=== PATIENT | female | born 1965 | race Caucasian/White ===

== ENCOUNTER → 2016-08-17 | Outpatient (CLI) | payer BC ==
--- NOTE | 2016-08-17 14:54 | MRI ---
Procedure: MR LUMBAR SPINE WITHOUT IV CONTRAST Exam Date: 08/17/2016 2:00 PM CDT Ordering Provider: PHYSICIAN UNKNOWN Clinical Indication: LUMBAR RADICULOPATHY Comparison: November 29, 2007 Technique: Multiplanar, multisequence MR images of the lumbar spine were obtained. Findings: No evidence of vertebral body compression deformity or acute fracture. No significant scoliosis.. Spinal cord terminates at the superior endplate of L1 and is normal in signal morphology. Cauda equina separate appropriately. T12-L1: Unremarkable. L1-L2: Unremarkable. L2-L3: Unremarkable. L3-L4: Trace disc bulge without spinal canal or foraminal stenosis. L4-L5: Unremarkable. L5-S1: Subtle transitional lumbosacral anatomy with hemisacralization of the transverse processes, left more so than right. Prevertebral and paravertebral soft tissues are unremarkable. Impression: Slight transitional lumbosacral anatomy without spinal canal or foraminal stenosis. Otherwise, unremarkable MRI of the lumbar spine. Electronically signed by: Nguyễn Lawler MD 08/17/2016 2:52 PM CDT
== END | disposition home or self-care (01) ==
LOC: MRI 13:51
PROVIDERS: ATTEND Nurse Practitioner Family
DX: M54.16 Radiculopathy, lumbar region (principal)

== ENCOUNTER → 2016-11-09 | Outpatient (CLI) | payer BC, SELFPAY ==
--- NOTE | 2016-11-09 14:51 | MRI ---
EXAM DESCRIPTION: Cervical Spine CLINICAL HISTORY: PAIN COMPARISON: None Available. TECHNIQUE: MRI of the cervical spine is performed according to our usual protocol. FINDINGS: Cervical spine is normally aligned with loss of the normal cervical lordosis and straightening throughout its course. Vertebral and disc height is maintained with multilevel modest disc desiccation but without significant disc narrowing or posterior chest bulge. No intradural or intramedullary abnormality or abnormality of cord contour is noted from the cranial cervical junction to the upper thoracic spine. Prevertebral soft tissues are unremarkable and no abnormal bone marrow signal is evident. Craniocervical junction is normal. C2-3: the disc is well hydrated. There is no loss of height. There is no bulging. The facets are unremarkable with no significant hypertrophy. There is no stenosis or impingement. C3-4: the disc is well hydrated. There is no loss of height. There is no bulging. The facets are unremarkable with no significant hypertrophy. There is no stenosis or impingement. C4-5: the disc is well hydrated. There is no loss of height. There is no bulging. The facets are unremarkable with no significant hypertrophy. There is no stenosis or impingement. C5-6: the disc is well hydrated. There is no loss of height. There is no bulging. The facets are unremarkable with no significant hypertrophy. There is no stenosis or impingement. C6-7: Very minimal central disc bulge with slight flattening of the anterior thecal sac but no severe cord compression or lateralizing herniation seen. This bulges minimally left-sided consistent with a minimal central or left parasagittal disc protrusion but not thought to be clinically significant C7-T1: the disc is well hydrated. There is no loss of height. There is no bulging. The facets are unremarkable with no significant hypertrophy. There is no stenosis or impingement. IMPRESSION: 1. Very small central and left parasagittal disc bulge consistent with a minimal protrusion without neural compression or stenosis at C6-7. 2. Otherwise normal examination without additional significant disc bulges or foraminal encroachment. 3. No intradural or intramedullary abnormality noted. Electronically signed by: Tonny Castorena MD 11/09/2016 2:51 PM CDT
== END | disposition home or self-care (01) ==
LOC: MRI 13:52
PROVIDERS: ATTEND Orthopaedic Surgery Orthopaedic Surgery of the Spine
DX: S13.4XXA Sprain of ligaments of cervical spine, initial encounter (principal); M54.12 Radiculopathy, cervical region

== ENCOUNTER → 2019-11-13 | Outpatient (CLI) | payer OTHER ==
--- NOTE | 2019-11-13 17:06 | MRI ---
EXAM DESCRIPTION: Cervical Spine MRI without contrast CLINICAL HISTORY: CERVICAL RADICULOPATHY COMPARISON: Previous MRI of the cervical spine November 11, 2016 TECHNIQUE: MRI of the cervical spine is performed according to our usual protocol. FINDINGS: Sagittal T2 images reveal decreased signal intensity within the intervertebral discs. Normal T2 appearance of the cervical cord. Posterior discal abnormalities are mild at C5-6 and C6-7 levels. This appears similar to previous study. Sagittal T1 images show benign marrow signal characteristics. Normal T1 appearance of the cervical and upper thoracic spinal cord. Normal alignment of the vertebral bodies and facets. Sagittal STIR images are negative for high signal intensity marrow edema within the vertebral bodies or posterior elements. No paraspinous fluid collection or cystic lesion. Axial images were obtained to evaluate the disc levels. C2-3: Normal posterior disc margin with no spinal stenosis or neural foraminal narrowing. Facets appear normal. Normal appearance of the cord at this level. C3-4: Normal posterior disc margin with no spinal stenosis or neural foraminal narrowing. Facets appear normal. Normal appearance of the cord at this level. C4-5: No significant posterior annular bulge. No spinal stenosis worse neural foraminal narrowing. Facets appear normal. C5-6: Mild bulge of the posterior annulus with no significant spinal stenosis or neural foraminal narrowing. Facets appear normal. Normal appearance of the cord at this level. C6-7: Mild midline left paracentral broad-based protrusion measuring 2 mm in AP dimension without significant change compared to previous. No significant spinal stenosis or neural foraminal narrowing. Facets appear normal. Normal appearance of the cord at this level. C7-T1: Normal posterior disc margin with no spinal stenosis or neural foraminal narrowing. Facets appear normal. Normal appearance of the cord at this level. IMPRESSION: Small left paracentral broad-based protrusion 2 mm appears chronic at C6-7. No significant change compared to previous study November 09, 2016. Electronically signed by: Lino Cardona MD 11/13/2019 5:04 PM CDT
== END ==
LOC: MRI 13:12
PROVIDERS: ATTEND Family Medicine Sports Medicine
DX: M54.12 Radiculopathy, cervical region (principal); M50.223 Other cervical disc displacement at C6-C7 level

== ENCOUNTER → 2019-11-28 | Outpatient (CLI) | payer OTHER ==
--- NOTE | 2019-11-29 10:36 | US ---
EXAM DESCRIPTION: Abdomen,Complete: Ultrasound. CLINICAL HISTORY: 54 years FemaleRIGHT UPPER QUADRANT PAIN COMPARISON: None Available. TECHNIQUE: Transabdominal scanning: grayscale and Doppler modes. FINDINGS: Gallbladder: Normal size gallbladder with no echogenic stones or sludge. Normal wall thickness 1.6 mm with no fluid. Nontender with transducer pressure. Common bile duct: 3.7 mm which is normal caliber. Liver: Long axis right lobe 13.9 cm. No focal lesions. Hepatopedal flow in the portal vein with caliber 7 mm at the héctor hepatis. Normal caliber of the ducts. Smooth capsule with no ascites.. Pancreas: Normal size and echogenicity with duct not seen. Abdominal aorta: Normal caliber in the proximal and mid segment, and distal segment to the bifurcation. IVC: visualized; normal caliber. Spleen normal echogenicity; long axis measurement is 7.6 cm. Right kidney: 9.4 cm long axis. Volume 86.6 mL. Normal cortical thickness and echogenicity. No echogenic stones or hydronephrosis. Left kidney: 10.7 cm long axis. Volume 122.2 mL. Normal cortical thickness and echogenicity. No echogenic stones or hydronephrosis. IMPRESSION: 1. Normal ultrasound of the gallbladder. Normal ultrasound of the abdomen. No organomegaly or ascites. 2. Stomach was not evaluated on this study. Electronically signed by: Jace Sun MD 11/29/2019 10:34 AM CDT
== END ==
LOC: US 12:42
PROVIDERS: ATTEND Family Medicine
DX: R10.11 Right upper quadrant pain (principal)

== ENCOUNTER 2020-02-01 05:42 | Day surgery (SDC) | payer OTHER ==
[2020-02-01] MEDS ORDERED: KETOROLAC TROMETHAMINE INJ 30 MG/ML VIAL ONE (07:00)
[2020-02-01] MEDS ORDERED: LIDOCAINE 1% 10 ML VIAL INJ ONE (07:00)
[2020-02-01] MEDS ORDERED: PROPOFOL 200 MG/20 ML VIAL IV ONE (07:00)
[2020-02-01] MEDS ORDERED: diphenhydrAMINE HCL 50 MG/ML VIAL ONE (07:00)
[2020-02-01] MEDS ORDERED: MAGNESIUM SULFATE INJ 1 GM/2 ML VIAL ONE (07:00)
[2020-02-01] MEDS ORDERED: DEXAMETHASONE INJ 10 MG/ML VIAL ONE (07:00)
[2020-02-01] MEDS ORDERED: BUPIVACAINE 0.5% W/EPI 30 ML VIAL INJ ONE (08:06)
[2020-02-01] MEDS: LACTATED RINGERS 1,000 ML ONE ×2 (08:20→10:10)
[2020-02-01] MEDS ORDERED: MIDAZOLAM INJ 2 MG/2 ML VIAL ONE (08:41)
[2020-02-01] MEDS ORDERED: DEXMEDETOMIDINE HCL 200 MCG/2 ML INJ IV ONE (08:41)
[2020-02-01] MEDS ORDERED: SUGAMMADEX SODIUM 200 MG/2 ML VIAL IV ONE (08:41)
[2020-02-01] MEDS ORDERED: fentaNYL CITRATE INJ 50 MCG/ML AMP ONE ×2 (08:41→10:07)
[2020-02-01] MEDS ORDERED: ROCURONIUM BROMIDE 10 MG/ML VIAL ONE (08:42)
[2020-02-01] MEDS ORDERED: FAMOTIDINE 10 MG/ML ML IV ONE (08:42)
[2020-02-01] MEDS: HYDROmorphone HCL INJ 2 MG/ML VIAL ONE ×2 (10:15→10:25)
--- NOTE | 2020-02-01 10:19 | OP ---
DATE OF PROCEDURE: 02/01/20 PREOPERATIVE DIAGNOSIS: 1. Biliary dyskinesia. 2. Abdominal pain. POSTOPERATIVE DIAGNOSIS: 1. Biliary dyskinesia. 2. Abdominal pain. PROCEDURE: 1. Laparoscopic cholecystectomy. SURGEON: Abhijit Walsh MD. ANESTHESIA: General and local. FINDINGS: Normal anatomy. There was ICG enhancement of the ductal system identifying both proximal and distal common duct and the cystic duct. There was evidence of some chronic scarring. No stones. Some thick bile. ESTIMATED BLOOD LOSS: Minimal. SPECIMEN: Gallbladder. PLAN: Discharge. INDICATION: This woman comes in with abdominal pain consistent with biliary disease. Ultrasound was normal. HIDA scan as I recall showed normal ejection fraction, however, she did experience a lot of pain during the procedure consistent with dyskinesia. We discussed this, it is all very typical of gallbladder disease, so she is here for cholecystectomy. PROCEDURE: She was brought to the Operating Suite in supine position. General anesthesia was induced. The patient was prepped and draped in sterile fashion. Marcaine 0.5% with epinephrine was used at all incision sites. While maintaining upward traction, a alysha was made near the base of the umbilicus. Veress needle was introduced. There was free flow of fluid into the peritoneal cavity which was insufflated to an appropriate level with CO2 gas. The 5 mm trocar was placed followed by the camera. There was no evidence of bleeding or bowel injury. The patient was positioned and subxiphoid and a single right lateral port was placed. The gallbladder fundus was identified. There were a few scars over the liver. These were taken off and then the gallbladder was retracted upward. There were a few anterior scars that were taken off with cautery and blunt dissection. The infundibulum was relatively scarred in, but we dissected it out and isolated the duct. This was when we confirmed again with the ICG that there was a duct and the common going behind. This was triply ligated. The artery was then dissected out and triply ligated with clips. We dissected the gallbladder off the fossa in total and removed in with the EndoCatch bag. There was some thickened bile in the gallbladder. We got in one small portion of it and aspirated. Once this was removed, the fossa was examined. There was no evidence of bleeding. The clips were intact. There was no bleeding or bile leakage. The area was irrigated until all aspirate was clear. The subxiphoid fascia was then closed with 0 Vicryl using the suture passer. It was airtight and non-bleeding. The remaining trocars were removed. The abdomen was desufflated. The wounds were closed with Monocryl. Dressings were applied. The patient was awakened and taken to Recovery to be discharged. #[id number] cc: Abhijit Russell MD [facility]
[2020-02-01] MEDS ORDERED: HYDROcodone 5MG/APAP 325MG 1 EA TAB ONE (10:52)
[2020-02-01 10:55] VITALS: O2SAT 98
[2020-02-01] MEDS ORDERED: HYDROcodone 5MG/APAP 325MG 1 EA TAB PO ONE (10:55)
[2020-02-01 11:51] VITALS: BP 139/86; TEMP 97.1
== END 2020-02-01 11:35 | disposition home or self-care (01) ==
LOC: AMB 05:42
PROVIDERS: ATTEND Surgery
DX: K81.1 Chronic cholecystitis (principal); K21.9 Gastro-esophageal reflux disease without esophagitis; E66.9 Obesity, unspecified; Z79.899 Other long term (current) drug therapy

== ENCOUNTER → 2020-06-26 | Outpatient (CLI) | payer OTHER ==
--- NOTE | 2020-06-26 16:40 | RAD ---
EXAM: Wrist,Right 3 Views INDICATION: 55 years Female, PAIN IN RIGHT WRIST COMPARISON: None available FINDINGS: 3 views of the right wrist were performed. Mild osteopenia. No fracture or dislocation. No destructive osseous lesion. Mild degenerative changes in the wrist. No focal gross soft tissue abnormality. No radiopaque foreign body. IMPRESSION: Mild degenerative changes in the right wrist without fracture or dislocation. Electronically signed by: Thalia Gonsalez MD 06/26/2020 4:39 PM [facility]
== END ==
LOC: RAD 09:24
PROVIDERS: ATTEND Orthopaedic Surgery
DX: M19.031 Primary osteoarthritis, right wrist (principal)